=== PATIENT | female | born 1960 | race Caucasian/White ===

== ENCOUNTER 2019-11-07 06:53 | Day surgery (SDC) | payer OTHER, SELFPAY ==
[~2019-11-07 06:53] MED LIST: Clindamycin Phosphate in D5W 600 MG in Premix Bag 1 BAG IV ONE; Lactated Ringers 1,000 ML IV SCH
[2019-11-07] MEDS ORDERED: fentaNYL 100 MCG/2 ML SDV ONE (07:07)
[2019-11-07] MEDS ORDERED: ePHEDrine 50 MG/ML SDV ONE (07:07)
[2019-11-07] MEDS ORDERED: Rocuronium 100 MG/10 ML Syringe ONE (07:07)
[2019-11-07] MEDS ORDERED: Phenylephrine/Normal Saline 100 MCG/ML 10 ML Syringe ONE (07:07)
[2019-11-07] MEDS ORDERED: Propofol 200 MG/20 ML SDV ONE (07:07)
[2019-11-07] MEDS ORDERED: Midazolam 1 MG/ML 2 ML SDV ONE (07:08)
[2019-11-07] MEDS ORDERED: Sodium Chloride 0.9% 20 ML ONE (07:09)
[2019-11-07] MEDS ORDERED: 50% Dextrose in Water 50 ML Syringe IVPUSH PRN (07:24)
[2019-11-07] MEDS ORDERED: fentaNYL 100 MCG/2 ML SDV IVPUSH PRN (07:24)
[2019-11-07] MEDS ORDERED: EPINEPHrine 1:10,000 1 MG/10 ML Syringe IVPUSH PRN (07:24)
[2019-11-07] MEDS ORDERED: Atropine 0.1 MG/ML 10 ML Syringe IVPUSH PRN ×2 (07:24)
[2019-11-07] MEDS ORDERED: Albuterol 0.083% 2.5 MG/3 ML Neb Soln NEB PRN (07:24)
[2019-11-07] MEDS ORDERED: Naloxone 0.4 MG/ML Syringe IVPUSH PRN (07:24)
--- NOTE | 2019-11-07 07:28 | PCM.PREANE ---
Preanesthetic Assessment - Anesthesia/Transfusion/Family Hx Anesthesia History: Prior Anesthesia Without Reaction Family History of Anesthesia Reaction: No Transfusion History: No Prior Transfusion(s) Intubation History: Unknown - Review of Systems General: No Symptoms Pulmonary: No Symptoms Cardiovascular: No Symptoms Gastrointestinal: No Symptoms Neurological: No Symptoms Other: Reports: None - Physical Assessment Height: 5 ft 2 in Weight: 66.678 kg ASA Class: 3 Mental Status: Alert & Oriented x3 Airway Class: Mallampati = 1 Dentition: Reports: Bridge (fixed right lower), Broken Tooth/Teeth (x1 upper right and left (back0) Thyro-Mental Finger Breadths: 2 Mouth Opening Finger Breadths: 3 ROM/Head Extension: Full Lungs: Clear to Auscultation, Normal Respiratory Effort Cardiovascular: Regular Rate, Regular Rhythm - Allergies Allergies/Adverse Reactions: Allergies Allergy/AdvReac Type Severity Reaction Status Date / Time codeine Allergy Shortness Verified 11/04/19 11:27 of Breath Penicillins Allergy Rash Verified 11/04/19 11:27 - Blood Blood Available: No - Anesthesia Plan Pre-Op Medication Ordered: None - Acknowledgements Anesthesia Type Planned: General Anesthesia Pt an Appropriate Candidate for the Planned Anesthesia: Yes Alternatives and Risks of Anesthesia Discussed w Pt/Guardian: Yes Pt/Guardian Understands and Agrees with Anesthesia Plan: Yes PreAnesthesia Questionnaire HEENT History: Reports: Other (See Below) Other HEENT History: uses reading glasses, has lower permanent partial denture Genitourinary History: Reports: Renal Calculus 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: Reports: Musculoskeletal History: Reports: Fracture Other Musculoskeletal History: hx of fx toe Neurological History: Reports: Neuropathy, Diabetic Endocrine/Metabolic History: Reports: Diabetes, Type II (diagnosed 5-6 years ago , lisinopril for kidney protection) Dermatologic History: Reports: Other (See Below) (diabetic ulcers) - Past Surgical History Head Surgeries/Procedures: Reports: None Female Surgical History: Reports: Breast Biopsy, Lithotripsy/ESWL, Tubal Ligation - SUBSTANCE USE Smoking Status *Q: Never Smoker Recreational Drug Use History: No - HOME MEDS Home Medications: Home Meds Ascorbic Acid [Vitamin C] 500 mg PO DAILY 11/04/19 [History] Lisinopril [Zestril] 2.5 mg PO DAILY 11/04/19 [History] metFORMIN [Glucophage] 500 mg PO DAILY 11/04/19 [History] - CURRENT (IN HOUSE) MEDS Current Meds: Current Medications Lactated Ringer's (Ringers, Lactated) 1,000 mls @ 125 mls/hr IV ASDIRECTED MIMA Discontinued Medications Ephedrine Sulfate (Ephedrine Sulfate) Confirm Administered Dose 50 mg .ROUTE .STK-MED ONE Stop: 11/07/19 07:08 Fentanyl (Sublimaze) Confirm Administered Dose 100 mcg .ROUTE .STK-MED ONE Stop: 11/07/19 07:08 Clindamycin Phosphate 600 mg/ (Premix) 50 mls @ 100 mls/hr IV ONETIME ONE Stop: 11/06/19 14:19 Sodium Chloride (Normal Saline) Confirm Administered Dose 20 mls @ as directed .ROUTE .STK-MED ONE Stop: 11/07/19 07:10 Midazolam HCl (Versed 1 Mg/Ml) Confirm Administered Dose 2 mg .ROUTE .STK-MED ONE Stop: 11/07/19 07:09 Phenylephrine HCl (Phenylephrine In Ns 100 Mcg/Ml) Confirm Administered Dose 1 mg .ROUTE .STK-MED ONE Stop: 11/07/19 07:08 Propofol (Diprivan 20 Ml) Confirm Administered Dose 200 mg .ROUTE .STK-MED ONE Stop: 11/07/19 07:08 Rocuronium [place] (Zemuron) Confirm Administered Dose 100 mg .ROUTE .STK-MED ONE Stop: 11/07/19 07:08 Succinylcholine Chloride (Succinylcholine Chloride) Confirm Administered Dose 200 mg .ROUTE .STK-MED ONE Stop: 11/07/19 07:08
[2019-11-07] MEDS ORDERED: Clindamycin Phosphate in D5W 600 MG in Premix Bag 1 BAG IV ONE ×2 (07:30)
[2019-11-07] MEDS ORDERED: Bupivacaine 0.5% 30 ML SDV ONE (07:36)
--- NOTE | 2019-11-07 09:53 | PCM.POSTAN ---
POST ANESTHESIA ASSESSMENT - MENTAL STATUS Mental Status: Alert, Oriented - VITAL SIGNS Vital Signs: Last Vital Signs Temp 36.3 C 11/07/19 09:33 Pulse 95 11/07/19 09:48 Resp 13 11/07/19 09:48 BP 109/51 L 11/07/19 09:48 Pulse Ox 97 11/07/19 09:48 - RESPIRATORY Respiratory Status: Respiratory Rate WNL, Airway Patent, O2 Saturation Stable - CARDIOVASCULAR CV Status: Pulse Rate WNL, Blood Pressure Stable - GASTROINTESTINAL GI Status: No Symptoms - PAIN Pain Score: 0 - POST OP HYDRATION Hydration Status: Adequate & Stable - OBSERVATIONS Free Text/Narrative:: No anesthesia problems
--- NOTE | 2019-11-07 10:04 | PCM.OPNOTE ---
- General Post-Op/Procedure Note Date of Surgery/Procedure: 11/07/19 Operative Procedure(s): amputation second toe right foot Findings: consistent with diagnosis Pre Op Diagnosis: osteomyelitis second toe right foot Post-Op Diagnosis: osteomyelitis second toe right foot Anesthesia Technique: General LMA Primary Surgeon: Federico Coy Pathology: bone and soft tissue and skin of second toe right foot EBL in mLs: 20 Complications: none Condition: Good Free Text/Narrative:: Intake & Output 11/06/19 11/07/19 11/07/19 22:59 06:59 14:59 Intake Total 1100 Balance 1100 materials: 3-0 vicryl, 2-0 prolene injectables: 0.5% marcaine plain hemostasis: none
--- NOTE | 2019-11-07 10:34 | PCM48HPAN ---
Post Anesthesia Note - EVALUATION WITHIN 48HRS OF ANESTHETIC Vital Signs in Normal Range: Yes Patient Participated in Evaluation: Yes Respiratory Function Stable: Yes Airway Patent: Yes Cardiovascular Function Stable: Yes Hydration Status Stable: Yes Pain Control Satisfactory: Yes Nausea and Vomiting Control Satisfactory: Yes Mental Status Recovered: Yes Vital Signs: Last Vital Signs Temp 36.5 C 11/07/19 09:55 Pulse 91 11/07/19 10:07 Resp 16 11/07/19 10:07 BP 115/66 11/07/19 10:07 Pulse Ox 96 11/07/19 10:07 - COMMENTS/OBSERVATIONS Free Text/Narrative:: NO anesthesia problems
--- NOTE | 2019-11-07 11:05 | PN ---
IDENTIFICATION: The patient is a 59-year-old female. DATE OF SURGERY: November 07, 2019. PLANNED PROCEDURE: Amputation of 2nd toe, right foot. ALLERGIES: Codeine, which causes shortness of breath. CURRENT MEDICATIONS: 1. Lisinopril 2.5 mg oral tablet, 1 tablet by mouth daily. 2. Metformin 500 mg oral tablet, 1 one tablet by mouth daily. 3. Vitamin C tablet chewable, 1 tablet daily. ACTIVE PROBLEMS: 1. Acquired deformity of right toe. 2. Diabetes type 2, uncontrolled. 3. Diabetic neuropathy. 4. Diabetic ulcer of the foot. Lately, the diabetes has been under good control. She has a prior history of uncontrolled diabetes. LABORATORY DATA: White blood cell 9.68, red blood cell 4.05, hemoglobin 12.8, hematocrit 37.7, platelets 219. Sodium 141, potassium 4.4, chloride 104, CO2 of 26.7, random glucose 111, BUN 24, creatinine 1.0, calcium was 9.8. EKG showed sinus rhythm. The patient was cleared for surgery by Dr. Jones with no contraindications to surgery noted. All the patient's questions have been answered. No guarantees have been expressed or implied. The patient has consented in writing with a witness present for the planned procedure today of amputation of 2nd toe, right foot. KIEL / ANJALI /[id number]
--- NOTE | 2019-11-07 12:32 | OR ---
SURGEON: Federico Coy DPM DATE OF PROCEDURE: 11/07/2019 PREOPERATIVE DIAGNOSIS: Osteomyelitis, 2nd toe, right foot. POSTOPERATIVE DIAGNOSIS: Osteomyelitis, 2nd toe, right foot. PROCEDURE: Amputation of 2nd toe, right foot. ANESTHESIA: General. PATHOLOGY: Bone and soft tissue and skin of 2nd toe, right foot. ESTIMATED BLOOD LOSS: 20 mL. HEMOSTASIS: None. COMPLICATIONS: None. CONDITION: Good. JUSTIFICATION FOR PROCEDURE: The patient is a long established patient of mine who has a chronic ulceration to the medial aspect of the proximal portion of the 2nd toe of the right foot due to complications from diabetes and severe hallux valgus. The patient has been reluctant to allow surgery for correction of the hallux valgus deformity and that combined with the diabetes, fluctuations in control of blood sugar over time have resulted in ulcer, which probes to bone, and there is actually visualized exposed bone on the medial aspect of the 2nd toe of the right foot. Serial x-rays confirm changes consistent with osteomyelitis further. The distal portion of the bone of the 2nd toe has long since been removed in a prior surgery by another surgeon. However, that surgeon left the remainder of the toe leaving the soft tissue and skin intact. However, this has resulted in further deviation deformity of the toe, which is also a factor being considered here. Due to the osteomyelitis present in the 2nd toe, I have recommended to the patient and warned the patient that without the amputation she risks spread of bone infection and risk of her entire foot eventually. The patient has consented for surgery as planned, which is amputation of the 2nd toe, right foot. All of the patient's questions have been answered. No guarantees expressed or implied and the written consent was witnessed and placed on the patient's chart. PROCEDURE IN DETAIL: The patient was brought to the operating room, placed on the operating table in the supine position, at which time an aseptic scrub and drape were performed about the patient's right lower extremity. There was no tourniquet applied and no hemostasis necessary for this procedure. Time out was performed and all present agreed with the reading of the written consent form and that correct surgical site was marked. Preoperative x-rays were taken documenting the preoperative state. After the scrub and drape and preoperative x-rays, a marking pen was used to plan the incision, which was a racquet mouth type of incision beginning at the metatarsophalangeal joint with allowance for loss of skin and tissue on the medial side, which would require a degree of flapping from lateral to medial after amputation occurred, so I left enough skin tissue for that purpose. Incision commenced over the midline of the metatarsophalangeal joint of the 2nd toe of the right foot, extended distally, and then following the racket mouth incision planned was deepened to bone and the distal portion of the toe was removed after being grasped with a small towel clamp and severed from the proximal portion. The remaining bone present in the toe, consisting largely of the portion of the proximal phalanx, was disarticulated at the metatarsophalangeal joint and removed. Both the skin and soft tissue removed and the bone removed were placed in a sterile specimen container in formalin and sent to pathology for gross and histologic examination. The area was flushed with copious amounts of normal sterile saline. Closure commenced with 3-0 Vicryl and skin closure was done with simple sutures using 2-0 Prolene as well as 1 horizontal suture. Trimming of excess skin tissue was done with an 11 blade for ideal approximation of skin edges. 10 mL of 0.5% Marcaine plain was infiltrated about the surgical site. The patient tolerated the anesthesia well, no complications noted, and tolerated the procedure well, no complications noted. The surgical site was dressed with Betadine-soaked Xeroform gauze, followed by fluff gauze, Kerlix roll, and secured with an Andrei bandage. After a brief stay in Recovery, the patient is planned for discharge today home with written instructions for postoperative care, and due to her codeine allergy, will be attempted to manage her pain with [id number] Tylenol and ibuprofen. However, the patient does have my phone number and will contact me as necessary should additional medication be required. SLANGUY / MODL /[id number] [place]
--- NOTE | 2019-11-07 17:13 | CR ---
Toes: Multiple fluoroscopic views of the right toes were obtained utilizing C-arm device. Fluoroscopy time given as 5.3 seconds. Study shows resection of the phalanx of the 2nd toe. Diffuse soft tissue swelling is present. Deformity is noted within the 3rd MTP joint. Bunion deformity is also noted. Impression: 1. Procedural study as noted above. Diagnostic code #2 This report was dictated in [place] Standard Time
== END 2019-11-07 10:35 | disposition home or self-care (01) ==
LOC: MW.SDS 06:53
PROVIDERS: ATTEND Podiatrist Foot & Ankle Surgery
DX: M86.671 Other chronic osteomyelitis, right ankle and foot (principal); M86.171 Other acute osteomyelitis, right ankle and foot; L97.518 Non-pressure chronic ulcer of other part of right foot with other specified severity; E11.40 Type 2 diabetes mellitus with diabetic neuropathy, unspecified; E11.621 Type 2 diabetes mellitus with foot ulcer; L97.529 Non-pressure chronic ulcer of other part of left foot with unspecified severity; Z88.5 Allergy status to narcotic agent; Z79.84 Long term (current) use of oral hypoglycemic drugs; Z79.899 Other long term (current) drug therapy
CPT/HCPCS: 28820; 76000; 87070; 87075; 87205; J0330; J2250; J2370; J2704; J3010; J3490; J7120; S0077; 01480; 87077; 87186; 88305; 88311

== ENCOUNTER 2020-05-18 06:40 | Day surgery (SDC) | payer OTHER ==
[~2020-05-18 06:40] MED LIST changes: -Clindamycin Phosphate in D5W 600 MG in Premix Bag 1 BAG IV ONE
[2020-05-18] MEDS ORDERED: Midazolam 1 MG/ML 2 ML SDV ONE (07:11)
[2020-05-18] MEDS ORDERED: fentaNYL 100 MCG/2 ML SDV ONE ×2 (07:12→12:41)
[2020-05-18] MEDS ORDERED: Ondansetron 4 MG/2 ML SDV ONE (07:12)
[2020-05-18] MEDS ORDERED: Propofol 200 MG/20 ML SDV ONE (07:12)
[2020-05-18] MEDS ORDERED: Bupivacaine 0.5% 30 ML SDV ONE (07:19)
[2020-05-18] MEDS ORDERED: Lidocaine 1% 20 ML MDV ONE (07:19)
[2020-05-18] MEDS ORDERED: Clindamycin Phosphate in D5W 600 MG in Premix Bag 1 BAG IV ONE ×2 (07:45)
--- NOTE | 2020-05-18 07:52 | PCM.PREANE ---
Preanesthetic Assessment - Anesthesia/Transfusion/Family Hx Anesthesia History: Prior Anesthesia Without Reaction Transfusion History: No Prior Transfusion(s) Intubation History: Unknown - Review of Systems General: No Symptoms Pulmonary: No Symptoms Cardiovascular: No Symptoms Gastrointestinal: No Symptoms Neurological: No Symptoms Other: Reports: None - Physical Assessment NPO Status Date: 05/17/20 Height: 5 ft 2 in Weight: 64.864 kg ASA Class: 2 Mental Status: Alert & Oriented x3 Airway Class: Mallampati = 2 Dentition: Reports: Normal Dentition ROM/Head Extension: Full Lungs: Clear to Auscultation, Normal Respiratory Effort Cardiovascular: Regular Rate, Regular Rhythm - Allergies Allergies/Adverse Reactions: Allergies Allergy/AdvReac Type Severity Reaction Status Date / Time codeine Allergy Shortness Verified 11/04/19 11:27 of Breath Penicillins Allergy Rash Verified 11/04/19 11:27 - Blood Blood Available: No - Anesthesia Plan Pre-Op Medication Ordered: None - Acknowledgements Anesthesia Type Planned: General Anesthesia Pt an Appropriate Candidate for the Planned Anesthesia: Yes Alternatives and Risks of Anesthesia Discussed w Pt/Guardian: Yes Pt/Guardian Understands and Agrees with Anesthesia Plan: Yes Additional Comments: PMH: dm2, diabetic neuropathy PLAN: ga/lma PreAnesthesia Questionnaire HEENT History: Reports: Other (See Below) Other HEENT History: uses reading glasses, has lower permanent bridge Cardiovascular History: Reports: None Respiratory History: Reports: None Gastrointestinal History: Reports: None Genitourinary History: Reports: Renal Calculus 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: Musculoskeletal History: Reports: Fracture Other Musculoskeletal History: hx of fx toe Neurological History: Reports: Neuropathy, Diabetic Psychiatric History: Reports: None Endocrine/Metabolic History: Reports: Diabetes, Type II Hematologic History: Reports: None Immunologic History: Reports: None Oncologic (Cancer) History: Reports: None Dermatologic History: Reports: None - Past Surgical History Head Surgeries/Procedures: Reports: None HEENT Surgical History: Reports: None Cardiovascular Surgical History: Reports: None Respiratory Surgical History: Reports: None GI Surgical History: Reports: None Female Surgical History: Reports: Breast Biopsy, Lithotripsy/ESWL, Tubal Ligation Endocrine Surgical History: Reports: None Neurological Surgical History: Reports: None Musculoskeletal Surgical History: Reports: Other (See Below) Other Musculoskeletal Surgeries/Procedures:: right 2nd toe amputation Oncologic Surgical History: Reports: None Dermatological Surgical History: Reports: None - SUBSTANCE USE Smoking Status *Q: Never Smoker - HOME MEDS Home Medications: Home Meds Ascorbic Acid [Vitamin C] 500 mg PO DAILY 11/04/19 [History] lisinopriL [Zestril] 2.5 mg PO DAILY 11/04/19 [History] metFORMIN [Glucophage] 500 mg PO DAILY 11/04/19 [History] - CURRENT (IN HOUSE) MEDS Current Meds: Current Medications Lactated Ringer's (Ringers, Lactated) 1,000 mls @ 125 mls/hr IV ASDIRECTED MIMA Clindamycin Phosphate 600 mg/ (Premix) 50 mls @ 100 mls/hr IV ONETIME ONE Stop: 05/18/20 08:14 Discontinued Medications Bupivacaine HCl (Marcaine 0.5%) Confirm Administered Dose 30 ml .ROUTE .STK-MED ONE Stop: 05/18/20 07:20 Fentanyl (Sublimaze) Confirm Administered Dose 100 mcg .ROUTE .STK-MED ONE Stop: 05/18/20 07:13 Lidocaine HCl (Xylocaine-Mpf 1%) Confirm Administered Dose 5 ml .ROUTE .STK-MED ONE Stop: 05/18/20 07:13 Lidocaine HCl (Xylocaine 1%) Confirm Administered Dose 20 ml .ROUTE .STK-MED ONE Stop: 05/18/20 07:20 Midazolam HCl (Versed 1 Mg/Ml) Confirm Administered Dose 2 mg .ROUTE .STK-MED ONE Stop: 05/18/20 07:12 Ondansetron HCl (Zofran) Confirm Administered Dose 4 mg .ROUTE .STK-MED ONE Stop: 05/18/20 07:13 Propofol (Diprivan 20 Ml) Confirm Administered Dose 200 mg .ROUTE .STK-MED ONE Stop: 05/18/20 07:13
--- NOTE | 2020-05-18 12:19 | PN ---
PREOPERATIVE PROGRESS NOTE: IDENTIFICATION: The patient is 60-year-old today. PLANNED PROCEDURE: Lapidus fusion with bunionectomy, right foot and possible proximal Ronni osteotomy of the great toe, right foot. ALLERGIES: The patient is allergic to codeine and penicillin. CURRENT MEDICATIONS: 1. Lisinopril 2.5 mg oral tablet 1 tablet by mouth once daily. 2. Metformin hydrochloride 500 mg oral tablet 1 tablet by mouth daily. 3. Vitamin C oral tablet chewable 1 daily. PAST MEDICAL HISTORY: The patient has a history of the following. Altered sensation of foot, cellulitis of right foot, cellulitis of great toe, hyperglycemia, influenza vaccination, ingrown toenail, onychomycosis, renal calculi, methicillin- susceptible Staphylococcus aureus infection, onychodystrophy, open wound of right foot, osteomyelitis of toe, skin fissure, sprain of left foot, ulcer of toe of right foot, and xerosis of skin. PAST SURGICAL HISTORY: Includes history of lithotomy, history of right second toe amputation for chronic osteomyelitis, and history of tubal ligation. ACTIVE PROBLEMS: Acquired deformity of right toe, diabetes type 2, diabetic neuropathy, and diabetic ulcers of both feet. Currently, this is not active, but the patient has a history of diabetic ulcers on both feet and truncal obesity. LABORATORY DATA: PTT 26.8 seconds. Sodium 139, potassium 4.1, chloride 104, CO2 of 24.9, random glucose was 236, BUN 31, creatinine 0.8, calcium 9.4, protein total 7.3, and albumin was 4.0. White blood cell 6.43, red blood cell 4.09, hemoglobin 12.9, hematocrit 38.0, and platelets 188. EKG showed sinus rhythm. Chest x-ray showed nothing acute. Also further laboratories, INR 0.92. The patient presents for the planned procedures today. All questions have been asked and answered. No guarantees have been expressed or implied. Written consent was signed with a witness present, placed in the patient's chart. The patient wishes to proceed with surgery today, and the patient was cleared for surgery by Dr. Corral on May 08, 2020. KIEL / ANJALI /[id number]
[2020-05-18] MEDS ORDERED: ePHEDrine 50 MG/ML SDV ONE (12:38)
--- NOTE | 2020-05-18 13:40 | PCM.OPNOTE ---
- General Post-Op/Procedure Note Date of Surgery/Procedure: 05/18/20 Operative Procedure(s): Lapidus fusion with bunionectomy right foot Findings: consistent with diagnosis Pre Op Diagnosis: first ray hypermobility, hallux valgus, bunion right foot Post-Op Diagnosis: first ray hypermobility, hallux valgus, bunion right foot Anesthesia Technique: General LMA Primary Surgeon: Federico Coy Pathology: medial eminence first metatarsal head right foot EBL in mLs: 100 Complications: none Condition: Good Free Text/Narrative:: materials: Hector [id number] mm staple Hector [id number] mm staple [place] 4 hole 35 mm T plate [place] 2.7 mm locking screws x 3 with lengths of 14, 16, 18 mm [place] 2.7 mm nonlocking screw x 1 with length of 18 mm Hector DBM 1.5 cc used 3-0 Vicryl 5-0 Vicryl 4-0 Stratafix injectables: 10 ml 0.5% marcaine plain
--- NOTE | 2020-05-18 13:51 | PCM.POSTAN ---
POST ANESTHESIA ASSESSMENT - MENTAL STATUS Mental Status: Alert, Oriented - VITAL SIGNS Vital Signs: Last Vital Signs Temp 97.6 F 05/18/20 13:28 Pulse 91 05/18/20 13:45 Resp 15 05/18/20 13:45 BP 121/58 L 05/18/20 13:45 Pulse Ox 96 05/18/20 13:45 - RESPIRATORY Respiratory Status: Respiratory Rate WNL, Airway Patent, O2 Saturation Stable - CARDIOVASCULAR CV Status: Pulse Rate WNL, Blood Pressure Stable - GASTROINTESTINAL GI Status: No Symptoms - POST OP HYDRATION Hydration Status: Adequate & Stable
--- NOTE | 2020-05-18 13:53 | PCM48HPAN ---
Post Anesthesia Note - EVALUATION WITHIN 48HRS OF ANESTHETIC Vital Signs in Normal Range: Yes Patient Participated in Evaluation: Yes Respiratory Function Stable: Yes Airway Patent: Yes Cardiovascular Function Stable: Yes Hydration Status Stable: Yes Pain Control Satisfactory: Yes Nausea and Vomiting Control Satisfactory: Yes Mental Status Recovered: Yes Vital Signs: Last Vital Signs Temp 97.6 F 05/18/20 13:28 Pulse 91 05/18/20 13:45 Resp 15 05/18/20 13:45 BP 121/58 L 05/18/20 13:45 Pulse Ox 96 05/18/20 13:45
[2020-05-18] MEDS ORDERED: Acetaminophen/HYDROcodone 325-5 MG Tab PO ONE (14:51)
--- NOTE | 2020-05-18 15:37 | CR ---
Foot: 4 fluoroscopic spot views were obtained. Side of exam not marked on the study. Bunion deformity is noted. Lateral deviation of the toes are noted within the 1st digit. Study shows fusion at the 1st MTP joint with osteotomy of the bunion deformity. Fluoroscopy time given as 82 seconds. Impression: 1. Procedural study as noted above. Diagnostic code #2 This report was dictated in MDT
--- NOTE | 2020-05-18 20:10 | OR ---
SURGEON: Federico Coy DPM DATE OF PROCEDURE: 05/18/2020 PREOPERATIVE DIAGNOSIS: Hypermobile first ray, hallux valgus, and bunion to right foot. POSTOPERATIVE DIAGNOSIS: Hypermobile first ray, hallux valgus, and bunion to right foot. OPERATIVE PROCEDURE: Lapidus fusion with bunionectomy, right foot. The possible Ronni osteotomy that was consented for was not performed. ANESTHESIA: General. HEMOSTASIS: Distal leg tourniquet inflated to a pressure of 250 mmHg after an Esmarch bandage exsanguination. The tourniquet time was in two parts, 120 minutes, followed by 1 hour of deflation followed by 1 hour and 26 minutes reinflation. Esmarch bandage exsanguination was performed before each inflation. INJECTABLES: 10 mL of 0.5% Marcaine plain injected at the conclusion of the procedure. MATERIALS: Consisted of Parshall 15 x 12 x 12 mm staple, Hector 18 x 17 x 15 mm staple. Hector T-plate which was 4 holes and 35 mm in length. Parshall 2.7 mm locking screws measuring 14, 16, and 18 mm, so there were 3 of those locking screws and one Hector 2.7 mm nonlocking screw measuring 18 mm and also Parshall DBM bone substitute of 2.5 mL package, approximately 1.5 mL was utilized. PATHOLOGY: Medial eminence of the first metatarsal head, right foot. COMPLICATIONS: None. JUSTIFICATION FOR PROCEDURE: The patient is a well-established patient of mine who has a prior history of ulceration on the medial eminence of the first metatarsal head of the right foot. She is also a diabetic who has at times been an uncontrolled diabetic. She had a very prolonged healing time on the ulcer to the medial eminence of the first metatarsal right foot, but did eventually heal this sometime ago. 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 In order to prevent further ulceration and risk of her right lower limb, the patient and I have agreed to proceed with surgical correction of the bunion, and due to the extreme deformity, the Lapidus procedure is being selected by me. All the patient's questions were asked and answered and all risks and benefits were discussed. No guarantees were given or implied and the patient did consent for the procedure as well as the Ronni osteotomy, which was not necessary to perform. Both procedures were consented for and the consent was witnessed and placed in the patient's chart. PROCEDURE IN DETAIL: Lapidus fusion with bunionectomy, right foot. The patient was brought to the operating room, placed on the operating table in the supine position. An aseptic scrub and drape were performed about the patient's right lower extremity. A time-out was performed verifying the correct surgical site and limb and the planned procedure. Esmarch bandage exsanguination was performed after preoperative x-rays were taken and marking pen had been used to luis fernando the path of the incision. After inflation of the tourniquet, the procedure commenced. Incision was made from the dorsal aspect of the medial cuneiform bone running over the first metatarsal cuneiform joint and over the shaft of the first metatarsal curving slightly medial and terminating just distal to the bunion deformity. The incision was deepened through the layers of superficial skin, dermis, subcutaneous layer, tendinous layer, and to bone. All neurovascular structures were retracted out of the way whenever possible and small bleeders and venous structures were bovied as necessary. The extensor hallucis longus tendon was retracted out of the path of the procedure. The medial dorsal cutaneous nerve was protected. Sagittal saw was utilized to resect the articulating joint on the medial cuneiform and first metatarsal after they were distracted using a Weinraub retractor. Manual curetting was done as necessary. The lateral cortex, which was very prominent on the first metatarsal base was resected with the sagittal saw to allow for the reduction in the first intermetatarsal angle. A temporary K-wire was used to fixate the position of the first metatarsal articulation with the medial cuneiform and a 4-0 Parshall screw was initially thrown but withdrawn when I determined that the bone was too porous to tolerate such an aggressive approach. Instead, I selected 2 Parshall barney, one measuring 15 x 12 x 12 mm and the other 18 x 17 x 15 mm. These were prepared by drilling the site using the guides for each and inserting the barney and tamping them down. The tourniquet was deflated during part of this time and surgery commenced during this time to the extent possible. There was noted bleeding and some Surgicel was used but removed from this site prior to completing the procedures, and this was a 2 x 3 cm piece of Surgicel. Flushing was done with normal sterile saline throughout the procedure and tamping of each staple was performed. The 4-0 locking plate was applied. Approximately a 2.7 nonlocking screw and 2.7 mm locking screw were used, both 18 mm and distally on the first metatarsal, a 14 and 16 mm locking screw were used. DBM product was used to fill any voids identified including the site of the screw that had been removed. The lag screw that had been removed and that site was filled with DBM as well. Layered closure was performed consisting of 3-0 Vicryl, 5-0 Vicryl, and the superficial skin was reapproximated with 4-0 Stratafix suture. A 10 mL of 0.5% Marcaine plain was injected. Tourniquet was deflated prior to that with the second tourniquet time being an hour and 26 minutes. Steri-Strips were applied. Xeroform soaked in Betadine was applied over the incision site and dressing was applied consisting of fluff gauze, Kerlix roll, stockinette, cast padding, posterior splint, and two EMILY bandages measuring 4 and 6 inches in width. The patient tolerated the procedure and the anesthesia well with no complications noted. The patient is planned for discharge once she completes standard recovery, and when she is stable. KIEL / ANJALI /[id number]
== END 2020-05-18 16:00 | disposition home or self-care (01) ==
LOC: MW.SDS 06:40
PROVIDERS: ATTEND Podiatrist Foot & Ankle Surgery
DX: M21.611 Bunion of right foot (principal); M20.11 Hallux valgus (acquired), right foot; E11.40 Type 2 diabetes mellitus with diabetic neuropathy, unspecified; E66.8 Other obesity; Z88.5 Allergy status to narcotic agent; Z79.84 Long term (current) use of oral hypoglycemic drugs; Z79.899 Other long term (current) drug therapy; Z68.26 Body mass index [BMI] 26.0-26.9, adult; Z88.0 Allergy status to penicillin
CPT/HCPCS: 28297; 82962; A9270; C1713; J2001; J2250; J2405; J2704; J3010; J3490; J7120; 01480

== ENCOUNTER 2021-05-04 08:03 | Day surgery (SDC) | payer OTHER ==
[2021-05-04] MEDS ORDERED: Scopolamine 1.5 MG Transdermal Patch ONE (08:15)
[2021-05-04] MEDS ORDERED: Metoclopramide 10 MG/2 ML SDV IVPUSH PRN (08:19)
[2021-05-04] MEDS ORDERED: Ondansetron 4 MG/2 ML SDV IVPUSH PRN (08:19)
[2021-05-04] MEDS ORDERED: Naloxone 0.4 MG/ML Syringe IVPUSH PRN (08:19)
[2021-05-04] MEDS ORDERED: HYDROmorphone 2 MG/ML Syringe IVPUSH PRN (08:19)
[2021-05-04] MEDS ORDERED: fentaNYL 100 MCG/2 ML SDV IVPUSH PRN (08:19)
[2021-05-04] MEDS ORDERED: Morphine 2 MG/ML SYRINGE IVPUSH PRN (08:19)
[2021-05-04] MEDS ORDERED: Albuterol 0.083% 2.5 MG/3 ML Neb Soln NEB PRN (08:19)
--- NOTE | 2021-05-04 08:22 | PCM.PREANE ---
Preanesthetic Assessment - Anesthesia/Transfusion/Family Hx Anesthesia History: Prior Anesthesia Without Reaction Family History of Anesthesia Reaction: No Transfusion History: No Prior Transfusion(s) Intubation History: Unknown - Review of Systems General: No Symptoms Pulmonary: No Symptoms Cardiovascular: No Symptoms Gastrointestinal: No Symptoms Neurological: Numbness, Pre-Existing Deficit, Tingling, Difficulty Walking Other: Reports: None - Physical Assessment NPO Status Date: 05/04/21 NPO Status Time: 00:00 Height: 5 ft 2 in Weight: 144 lb ASA Class: 3 Mental Status: Alert & Oriented x3 Airway Class: Mallampati = 2 Dentition: Reports: Normal Dentition Thyro-Mental Finger Breadths: 3 Mouth Opening Finger Breadths: 3 ROM/Head Extension: Full Lungs: Clear to Auscultation, Normal Respiratory Effort Cardiovascular: Regular Rate, Regular Rhythm - Allergies Allergies/Adverse Reactions: Allergies Allergy/AdvReac Type Severity Reaction Status Date / Time codeine Allergy Shortness Verified 04/29/21 13:40 of Breath Penicillins Allergy Rash Verified 04/29/21 13:40 - Anesthesia Plan Pre-Op Medication Ordered: Other (Scopolamine) - Acknowledgements Anesthesia Type Planned: General Anesthesia Pt an Appropriate Candidate for the Planned Anesthesia: Yes Alternatives and Risks of Anesthesia Discussed w Pt/Guardian: Yes Pt/Guardian Understands and Agrees with Anesthesia Plan: Yes PreAnesthesia Questionnaire HEENT History: Reports: Other (See Below) Other HEENT History: uses reading glasses, has lower permanent bridge Cardiovascular History: Reports: None Respiratory History: Reports: None Gastrointestinal History: Reports: GERD Genitourinary History: Reports: Renal Calculus CERTIFIED SCRUB TECH History: Reports: Musculoskeletal History: Reports: Fracture Other Musculoskeletal History: hx of fx toe Neurological History: Reports: Neuropathy, Diabetic Psychiatric History: Reports: None Endocrine/Metabolic History: Reports: Diabetes, Type II Hematologic History: Reports: None Immunologic History: Reports: None Oncologic (Cancer) History: Reports: None Dermatologic History: Reports: None - Past Surgical History Head Surgeries/Procedures: Reports: None HEENT Surgical History: Reports: None Cardiovascular Surgical History: Reports: None Respiratory Surgical History: Reports: None GI Surgical History: Reports: None Female Surgical History: Reports: Breast Biopsy, Lithotripsy/ESWL, Tubal Ligation Endocrine Surgical History: Reports: None Neurological Surgical History: Reports: None Musculoskeletal Surgical History: Reports: Other (See Below) Other Musculoskeletal Surgeries/Procedures:: right 2nd toe amputation, surgery on right foot Oncologic Surgical History: Reports: Biopsy of Breast Dermatological Surgical History: Reports: None - SUBSTANCE USE Tobacco Use Status *Q: Never Tobacco User - HOME MEDS Home Medications: Home Meds Ascorbic Acid [Vitamin C] 500 mg PO DAILY 11/04/19 [History] lisinopriL [Zestril] 2.5 mg PO DAILY 11/04/19 [History] metFORMIN [Glucophage] 1,000 mg PO BID 11/04/19 [History] - CURRENT (IN HOUSE) MEDS Current Meds: Current Medications Lactated Ringer's (Ringers, Lactated) 1,000 mls @ 125 mls/hr IV ASDIRECTED MIMA Clindamycin Phosphate (Cleocin In D5w 600 Mg/50 Ml) 50 mls @ 92.593 mls/hr IV ONETIME ONE Stop: 05/04/21 09:47 Discontinued Medications Scopolamine (Scopolamine 1.5 Mg Transdermal Patch) Confirm Administered Dose 1.5 mg .ROUTE .STK-MED ONE Stop: 05/04/21 08:16
[2021-05-04] MEDS ORDERED: fentaNYL 100 MCG/2 ML SDV ONE (08:47)
[2021-05-04] MEDS ORDERED: Propofol 200 MG/20 ML SDV ONE (08:47)
[2021-05-04] MEDS ORDERED: Midazolam 1 MG/ML 2 ML SDV ONE (08:47)
[2021-05-04] MEDS ORDERED: Lidocaine 2% 5 ML SDV ONE (08:48)
[2021-05-04] MEDS ORDERED: Ondansetron 4 MG/2 ML SDV ONE (08:48)
[2021-05-04] MEDS ORDERED: Glycopyrrolate 0.2 MG/ML SDV ONE (08:48)
[2021-05-04] MEDS ORDERED: Ketorolac 30 MG/ML SDV ONE (08:48)
[2021-05-04] MEDS ORDERED: Clindamycin Phosphate in D5W 50 ML IV ONE (09:15)
--- NOTE | 2021-05-04 10:14 | PCM.OPNOTE ---
- General Post-Op/Procedure Note Date of Surgery/Procedure: 05/04/21 Operative Procedure(s): 1. removal of hardware right foot. 2. Lapidus bunionectomy right foot Anesthesia Technique: General LMA Primary Surgeon: Federico Coy Pathology: hardware from right foot: barney, screws, plate EBL in mLs: 50 Complications: none Condition: Good Free Text/Narrative:: materials: Lapiplasty plates x 2 and screws x 8 2-0 vicryl 3-0 vicryl 4-0 prolene injectables 10 ml 0.5% marcaine plain tourniquet time: 163 min total (120 min, 28 min deflation time, 43 min)
[2021-05-04] MEDS ORDERED: Lidocaine 1% 20 ML MDV ONE (10:25)
[2021-05-04] MEDS ORDERED: Bupivacaine 0.5% 30 ML SDV ONE (10:25)
--- NOTE | 2021-05-04 11:13 | PCM.SN.2 ---
- Free Text/Narrative Note: Addendum: Patients dentition is in overall poor condition with multiple loose and chipped teeth as well as advanced periodontal disease Chance Fitzgerald MD
--- NOTE | 2021-05-04 11:34 | PN ---
PREOPERATIVE PROGRESS NOTE: The patient is a 60-year-old female. PLANNED PROCEDURES: 1. Removal of hardware, right foot. 2. Lapidus bunionectomy, right foot. ALLERGIES: Listed for codeine and penicillin. PAST MEDICAL HISTORY: Active problems include: 1. Acquired deformity of right toe. 2. Diabetes type 2, uncontrolled, although it is recently well controlled. 3. Diabetic neuropathy. 4. Diabetic ulcer, both feet that is no longer an active problem. 5. Truncal obesity. CURRENT MEDICATIONS: 1. Lisinopril 2.5 mg oral tablet, take one tab by mouth once daily. 2. Metformin hydrochloride 500 mg oral tablet, take 2 tablets by mouth twice a day. 3. Vitamin C oral tablet chewable one tab daily. The patient has been fully vaccinated for COVID-19. LABORATORY DATA: Sodium 137, potassium 4.6, chloride 103, CO2 of 28.6, random glucose 210, BUN 27, creatinine 0.8, estimated GFR greater than 60. Calcium 9.3, PTT 25.2, INR 0.94. White blood cell 9.18, red blood cell 3.94, hemoglobin 12.6, hematocrit 37.1, platelets 210. Chest x-ray showed no acute cardiopulmonary disease. EKG showed sinus rhythm with left axis deviation, low voltage precordial leads, and abnormal R-wave progression, early transition, deemed a borderline EKG. The patient was cleared for surgery by Dr. Corral and all patient's questions have been asked and answered. No guarantees expressed or implied. All risks and benefits of surgery have been discussed. The patient understands that due to broken hardware, it is necessary to revise prior Lapidus fusion. The patient has consented in writing for the procedures today as stated. KIEL / ANJALI /[id number]
--- NOTE | 2021-05-04 14:59 | PCM48HPAN ---
Post Anesthesia Note - EVALUATION WITHIN 48HRS OF ANESTHETIC Vital Signs in Normal Range: Yes Patient Participated in Evaluation: Yes Respiratory Function Stable: Yes Airway Patent: Yes Cardiovascular Function Stable: Yes Hydration Status Stable: Yes Pain Control Satisfactory: Yes Nausea and Vomiting Control Satisfactory: Yes Mental Status Recovered: Yes Vital Signs: Last Vital Signs Temp 97.7 F 05/04/21 14:46 Pulse 80 05/04/21 14:58 Resp 22 H 05/04/21 14:58 BP 107/53 L 05/04/21 14:58 Pulse Ox 99 05/04/21 14:58
--- NOTE | 2021-05-04 14:59 | PCM.POSTAN ---
POST ANESTHESIA ASSESSMENT - MENTAL STATUS Mental Status: Alert, Oriented - VITAL SIGNS Vital Signs: Last Vital Signs Temp 97.7 F 05/04/21 14:46 Pulse 80 05/04/21 14:58 Resp 22 H 05/04/21 14:58 BP 107/53 L 05/04/21 14:58 Pulse Ox 99 05/04/21 14:58 - RESPIRATORY Respiratory Status: Respiratory Rate WNL, Airway Patent, O2 Saturation Stable - CARDIOVASCULAR CV Status: Pulse Rate WNL, Blood Pressure Stable - GASTROINTESTINAL GI Status: No Symptoms - POST OP HYDRATION Hydration Status: Adequate & Stable
--- NOTE | 2021-05-05 09:26 | OR ---
SURGEON: Federico Coy DPM DATE OF PROCEDURE: 05/04/2021 PREOPERATIVE DIAGNOSES: 1. Broken hardware, right foot. 2. Malunion with metatarsus primus varus, right foot. OPERATIVE PROCEDURES: 1. Removal of hardware, right foot. 2. Lapidus bunionectomy, right foot. ANESTHESIA: General LMA. HEMOSTASIS: [place] pneumatic tourniquet inflated to a pressure of 250 mmHg after an Esmarch bandage exsanguination for 120 minutes, deflated for 28 minutes, reinflated for 43 minutes. PATHOLOGY: Hardware removed from the right foot. ESTIMATED BLOOD LOSS: 50 mL. MATERIALS: [employer] Lapiplasty plates x2 and screws x8, all screws were 2.7 mm diameter locking screws; 2-0 Vicryl, 3-0 Vicryl, and 4-0 Prolene. INJECTABLES: 10 mL of 0.5% Marcaine plain. JUSTIFICATION FOR THE PROCEDURE: The patient is a well-established patient of [facility] with a prior history of uncontrolled diabetes, hallux valgus, diabetic foot infection, amputation of the right 2nd toe, and a prior Lapidus procedure, which resulted in malunion and broken hardware. The deviation of the 1st metatarsal has worsened over time and requires revision surgery to remove the broken hardware to the extent possible and stabilize the 1st metatarsocuneiform joint in a sufficiently stable approach to hopefully avoid a repeat of the prior occurrence. The patient understands this and has consented for surgery in writing with all patient questions asked and answered. Risks and benefits have been discussed thoroughly with the patient. PROCEDURE IN DETAIL: The patient was brought to the operating room and placed on the operating table in supine position, at which time anesthesia was administered. An aseptic scrub and drape were performed. Preoperative x-rays were taken, and the incision site was marked with a marking pen on the dorsal aspect of the 1st metatarsal shaft of the right foot. A time-out was performed, verifying correct planned procedures and surgical site. All present concurred. Esmarch bandage exsanguination was performed and the calf tourniquet on the right lower extremity inflated to a pressure of mmHg. An incision was then made through skin and subcutaneous tissue with care taken to retract the extensor hallucis longus tendon laterally. All small bleeders were cauterized as needed. The incision was deepened to bone along the 1st metatarsocuneiform joint and distally to the midshaft of the 1st metatarsal. The hardware was identified. First, the 2 broken screws were identified and then the 2 distal screws identified securing the plate across the 1st metatarsocuneiform joint. The distal screws were removed after a small bone rongeur was used to remove overgrowth of bone, and then, the proximal screws were removed, and the plate was freed as well. Following this, the medial staple was removed from the former joint site and the dorsal staple as well. The 2 small distal aspects of the screws that had served as the proximal fixation screws in the medial cuneiform were left as they were buried deep. The Lapiplasty procedure was then performed with an osteotome and a sagittal saw used to create a cut in the former joint location and to free and allow rotation of the 1st metatarsal shaft. Fixation was then applied with temporary BB tacks and K-wires following the standard approach with Lapiplasty procedures. Dorsal plate was placed over the corrected and reduced IM angle over the 1st metatarsal and cuneiform bones and fixated with two 2.7 locking screws on each side, and the same was done with the medial plate. As part of the fixation, the compression that was achieved required a stab incision on the lateral aspect of the 2nd metatarsal. This was done prior to applying the hardware. A small incision was made over prominent aspect of the small remaining bunion, which had been previously resected, and this was feathered with a sagittal saw and rasped smooth with a manual rasp. All sites were flushed with copious amounts of normal sterile saline. The tourniquet was deflated after 2 hours mid procedure and reinflated 28 minutes later for another 43 minutes. It was deflated during closure of the subcutaneous tissue, and the superficial skin was reapproximated at all incision sites. There was a noted amount of excessive bleeding at the end of the suturing of the superficial skin. Two skin sutures were removed, and the area was compressed. Silvercel was used and hemostasis agent as well, and hemostasis was achieved. The area was then flushed and re-sutured. It should be noted the deep tissue was reapproximated with 2-0 Vicryl, the subcutaneous level with 3-0 Vicryl, and the superficial skin with 4-0 Prolene suture. The patient did have prompt hyperemic response to all digits of the right foot following deflation of the tourniquet both times. 10 mL of 0.5% Marcaine plain was infiltrated about the surgical sites, and Betadine-soaked Xeroform gauze was applied over the incision sites, followed by fluff gauze and Kerlix roll, and then, a stockinette was applied, followed by cast padding, and a posterior splint consisting of 4 inch wide Ortho-Glass was used. This was then secured with 4 and 6 inch Andrei bandage. The patient was transported from the operating room to the recovery room having tolerated the procedure well with vital signs stable. DISPOSITION: She is being discharged home with written instructions and will be following up in my office in 2 days. She has my phone number in the event any questions arise. KIEL ALBA /[id number]
--- NOTE | 2021-05-06 09:28 | CR ---
Indication: Right foot hardware removal and bunionectomy. Technique: Fluoroscopy provided during right foot surgery. 34.2 seconds fluoro time. 7 images. Comparison: Intraoperative right foot fluoroscopic images 05/18/2020. Findings/Impression : Intraoperative fluoroscopic images obtained during removal of the large barney fusing the 1st tarsometatarsal joint. There is also plate screw fixation in place with a fractured proximal screw. Placement of a 2nd plate and screw fixation across the 1st TMT joint. Marked hallux valgus with lateral deviation of the 1st proximal phalanx. Prior 1st metatarsal head osteotomy changes and prior amputation of the 2nd digit. Dictated by Arminda Capone MD @ 05/06/2021 9:26:[address] Arminda Capone @ May 06 2021 9:26AM
== END 2021-05-04 16:05 | disposition home or self-care (01) ==
LOC: MW.SDS 08:03
PROVIDERS: ATTEND Podiatrist Foot & Ankle Surgery
DX: Q66.211 Congenital metatarsus primus varus, right foot (principal); T84.89XA Other specified complication of internal orthopedic prosthetic devices, implants and grafts, initial encounter; S92.311P Displaced fracture of first metatarsal bone, right foot, subsequent encounter for fracture with malunion; E11.40 Type 2 diabetes mellitus with diabetic neuropathy, unspecified; E11.621 Type 2 diabetes mellitus with foot ulcer; L97.519 Non-pressure chronic ulcer of other part of right foot with unspecified severity; L97.529 Non-pressure chronic ulcer of other part of left foot with unspecified severity; K21.9 Gastro-esophageal reflux disease without esophagitis; Z88.5 Allergy status to narcotic agent; Z79.899 Other long term (current) drug therapy; Z79.84 Long term (current) use of oral hypoglycemic drugs; Z98.890 Other specified postprocedural states; Z88.0 Allergy status to penicillin
CPT/HCPCS: 20680; 28297; A9270; C1713; J0131; J2250; J2370; J2405; J2704; J3010; J3490; J7120; 01480; 88300; J1885